=== PATIENT | female | born 1955 | race Caucasian/White ===

== ENCOUNTER 2017-10-06 21:53 | Inpatient (IN) ==
[2017-10-06] MEDS ORDERED: Sodium Chlor 0.9% Inj 500 ML IV.SIG ONE (22:39)
[2017-10-06 22:53] LABS: Baso % (Auto) 0.6 % (0.0-2.0); Eos # (Auto) 0.1 th/mm3 (0.0-0.4); Eos % (Auto) 1.6 % (0.0-4.0); Hematocrit 39.3 % (35.0-46.0); Hemoglobin 13.2 gm/dL (11.6-15.3); Lymph % (Auto) 27.8 % (9.0-44.0); Mean Corpuscular HGB Conc 33.7 % (32.0-36.0); Mean Corpuscular Hemoglobin 30.6 pg (27.0-34.0); Mean Platelet Volume 9.4 fL (7.0-11.0); Mono # (Auto) 0.4 th/mm3 (0.0-0.9); Mono % (Auto) 5.4 % (0.0-8.0); Neut # (Auto) 4.7 th/mm3 (1.8-7.7); Neut % (Auto) 64.6 % (16.0-70.0); Platelet Count 139 th/mm3 (150-450); Red Blood Count 4.32 mil/mm3 (4.00-5.30); Red Cell Distribution Width 13.7 % (11.6-17.2); White Blood Count 7.3 th/mm3 (4.0-11.0)
[2017-10-06 23:03] LABS: Activated Partial Thrombo Time 22.5 sec (24.3-30.1); Prothrombin Time 10.5 sec (9.8-11.6)
--- NOTE | 2017-10-06 23:06 | XR ---
EXAM DATE: 10/06/2017 10:56 PM EDT AGE/SEX: 62 years / Female INDICATIONS: Evaluate chest for trauma, fell CLINICAL DATA: This is the patient's initial encounter. Patient reports that signs and symptoms have been present for 1 day and indicates a pain score of 0/10. MEDICAL/SURGICAL HISTORY: None. None. COMPARISON: No prior exams available for comparison. FINDINGS: A single AP view of the chest demonstrates the lungs to be symmetrically aerated without evidence of mass, infiltrate or effusion. The cardiomediastinal contours are unremarkable. Osseous structures d emonstrate a comminuted fracture of the right proximal humeral shaft. CONCLUSION: Right humerus fracture. Clear lungs. Electronically signed by: Alexander Khanna MD 10/06/2017 11:05 PM EDT
[2017-10-06 23:07] LABS: Calcium 8.6 mg/dL (8.5-10.1); Carbon Dioxide 23.1 meq/L (21.0-32.0); Magnesium 1.9 mg/dL (1.5-2.5); Potassium 3.6 meq/L (3.5-5.1)
--- NOTE | 2017-10-06 23:07 | XR ---
EXAM DATE: 10/06/2017 10:58 PM EDT AGE/SEX: 62 years / Female INDICATIONS: Right humerus pain, fell CLINICAL DATA: This is the patient's initial encounter. Patient reports that signs and symptoms have been present for 1 day and indicates a pain score of 10/10. MEDICAL/SURGICAL HISTORY: None. None. COMPARISON: No prior exams available for comparison. FINDINGS: There is an oblique comminuted medially displaced fracture of the proximal to mid shaft of the right humerus. The bone density is normal. CONCLUSION: Right humerus fracture. Electronically signed by: Alexander Khanna MD 10/06/2017 11:05 PM EDT
--- NOTE | 2017-10-06 23:07 | ED ---
HPI General Chief complaint: Extremity Injury, Upper Stated complaint: R arm injury Time Seen by Provider: 10/06/17 22:13 Source: patient Mode of arrival: EMS Limitations: no limitations History of Present Illness HPI narrative: The patient is a 62 year old female who presents to the [facility] emergency department with a history of getting out of bed prior to arrival and accidentally tripping on her dog. She reports that she fell onto her right arm and heard a crunching sound. She reports that she was having difficulty getting up off of the floor and had severe pain in the right upper arm. The patient was noted to have some deformity by ambulance services. The patient denies hitting her head or losing consciousness. She denies having any to her extremities or weakness of her extremities. She denies having any chest pain, chest pressure, or shortness of breath. She denies having any abdominal pain. Otherwise on review of systems, she denies recent fevers, cough, congestion, vomiting, diarrhea, urinary symptoms, or other neurologic symptoms. Related Data Home Medications Medication Instructions Recorded Confirmed sertraline [Zoloft] 150 mg PO DAILY 10/06/17 10/07/17 Previous Rx's Medication Instructions Recorded hydrocodone-acetaminophen 1 tab PO Q4H PRN #42 tab 10/07/17 Allergies Allergy/AdvReac Type Severity Reaction Status Date / Time No Known Allergies Allergy Uncoded 10/06/14 14:06 Review of Systems ROS Unobtainable All other systems reviewed negative except as stated in HPI PMFSH Social History Social History Substance History: No History of Abuse Second Hand Smoke Exposure: No Smoking Status: Never smoker Tobacco Type: Cigarettes How Often Do You Have a Drink Containing Alcohol: 4 or more times a week Recent Travel in [facility] within the Last 8 Weeks: No Immunization History Tetanus Immunization: >5 Years Hx Influenza Vaccine This Season: No Exam Const General: cooperative, no acute distress and well developed Nutritional Appearance: well nourished Orientation: alert, awake and oriented x3 HENMT Head: normocephalic and atraumatic Nose: no nasal discharge and no epistaxis Mouth: moist mucous membranes Throat: posterior oropharynx normal and uvula midline Eyes Sclera: normal sclerae Pupils: PERRL Neck Neck: no meningeal signs, trachea midline and no JVD Resp Effort & Inspection: no use of accessory muscles Auscultation: clear to auscultation bilaterally Cardio Rate: regular rate Rhythm: regular rhythm Heart Sounds: no murmurs GI Inspection: non-distended Palpation: soft, no hepatosplenomegaly and nontender Auscultation: normal bowel sounds Back/Spine/Pelvis Back: no CVA tenderness Cervical Spine: normal cervical lordosis and No cervical spinal tenderness Thoracic/Lumbar Spine: thoracic and lumbar spine normal to inspection, No thoracic spinal tenderness and No lumbar spinal tenderness Skin General: dry skin (warm) Neuro General: alert, awake and oriented x3 Cranial Nerves: other (No facial asymmetry) Speech: speech normal Motor: strength 5/5 throughout and no movement abnormalities noted Sensory Exam: no sensory deficits noted Extrem General: normal to inspection (No calf tenderness on palpation. 2+ pulses in all 4 extremities.), normal exam except as noted (With the right upper extremity in a sling, decreased range of motion of the right numerous. She reports having mid to proximal humerus pain on palpation. There is some swelling noted. No crepitus noted. Patient has full range of motion of her elbow, wrist, fingers. The patient has intact sensation over all fingertips. The patient has soft compartments. The patient has less than 3 second capillary refill.), no clubbing, no cyanosis and no edema Psych Mood: congruent mood Affect: normal affect Judgment: judgment good Course Consultations Consultation #1: The patient's case including history, pertinent physical examination findings, and laboratory studies were discussed with Dr. Olivia. It was agreed that the patient would be admitted to the hospitalist service. Time: 23:35 Consultation #2: The patient's case including history, pertinent physical examination findings, and laboratory studies were discussed with Dr. Hamm. It was agreed that the patient would be admitted to the hospitalist service. Initial Documented Vital Signs Temperature 98.7 F 10/06/17 22:03 Pulse Rate 68 10/06/17 22:03 Respiratory Rate 17 10/06/17 22:03 Blood Pressure 108/65 10/06/17 22:03 Pulse Oximetry 95 10/06/17 22:03 Last Documented Vital Signs Temperature 98 F 10/07/17 12:00 Pulse Rate 74 10/07/17 12:00 Respiratory Rate 18 10/07/17 12:24 Blood Pressure 153/72 H 10/07/17 12:00 Pulse Oximetry 94 L 10/07/17 12:00 Medical Decision Making [facility] Narrative Medical decision making narrative: During the course of the patient's emergency department visit, the patient's history, examination, and differential diagnosis were reviewed with the patient. The patient was placed on a clinical auditor with oximetry and frequent blood pressure monitoring. The patient had IV access obtained and blood work sent for analysis. Diagnostic workup was started regarding this patient's fall with severe right upper extremity pain. The patient was initially provided morphine for pain relief, normal saline IV fluids The patient's laboratory studies were remarkable for a white blood cell count was noted to be 7.3, platelets 139 with a normal differential, hemoglobin 13, PT 10.5, PTT 22.5., Alcohol level is 132. Chemistry shows a GFR of 73. Imaging studies revealed a oblique comminuted medially displaced fracture of the proximal to mid shaft of the right humerus. The patient's chest x-ray showed no acute abnormality other than the humerus findings. A call was placed out to the orthopedic physician insurance sales professional. The patient's imaging findings were discussed with him. He was agreeable with the plan for the patient to be admitted and he will see the patient in consultation. He recommended that the patient be placed in a coaptation splint. The patient's results were discussed with the patient, including the plan of care. I explained that further testing and/ or monitoring is indicated based on the patient's history, examination, and/ or laboratory findings. Therefore, I recommended admission for additional evaluation. The patient expressed understanding and was agreeable with this plan. The patient was admitted to the hospital in stable condition and sent to a bed under the care of the [facility] service. Differential Diagnosis Differential Diagnosis: Shoulder dislocation, versus humerus fracture, versus clavicle fracture, versus contusion Medical Records Medical records reviewed: Yes I reviewed the patient's medical records. Lab Data Lab results reviewed: Yes I reviewed the patient's lab results. Result diagrams: 10/06/17 22:45 10/06/17 22:45 Lab Results 10/06/17 10/06/17 10/06/17 Range/Units 22:45 22:45 22:45 WBC 7.3 (4.0-11.0) th/mm3 RBC 4.32 (4.00-5.30) mil/mm3 Hgb 13.2 (11.6-15.3) gm/dL Hct 39.3 (35.0-46.0) % MCV 91.0 (80.0-100.0) fL MCH 30.6 (27.0-34.0) pg MCHC 33.7 (32.0-36.0) % RDW 13.7 (11.6-17.2) % Plt Count 139 L (150-450) th/mm3 MPV 9.4 (7.0-11.0) fL Neut % (Auto) 64.6 (16.0-70.0) % Lymph % (Auto) 27.8 (9.0-44.0) % Throckmorton % (Auto) 5.4 (0.0-8.0) % Eos % (Auto) 1.6 (0.0-4.0) % Baso % (Auto) 0.6 (0.0-2.0) % Neut # (Auto) 4.7 (1.8-7.7) th/mm3 Lymph # (Auto) 2.0 (1.0-4.8) th/mm3 Throckmorton # (Auto) 0.4 (0.0-0.9) th/mm3 Eos # (Auto) 0.1 (0.0-0.4) th/mm3 Baso # (Auto) 0.0 (0.0-0.2) th/mm3 WBC Differential . Differential Comment Auto diff final PT 10.5 (9.8-11.6) sec INR 1.0 Ratio APTT 22.5 L (24.3-30.1) sec Sodium 141 (136-145) meq/L Potassium 3.6 (3.5-5.1) meq/L Chloride 106 (98-107) meq/L Carbon Dioxide 23.1 (21.0-32.0) meq/L Anion Gap 12 (5-15) meq/L BUN 12 (7-18) mg/dL Creatinine 0.79 (0.50-1.00) mg/dL Estimated GFR 73 L (>89) mL/min Random Glucose 101 (74-106) mg/dL Calcium 8.6 (8.5-10.1) mg/dL Magnesium 1.9 (1.5-2.5) mg/dL Serum Alcohol 132 H (0-5) mg/dL Imaging Data Radiologist's impression: Chest X-Ray 10/06/17 22:38 CONCLUSION: Right humerus fracture. Clear lungs. Humerus X-Ray 10/06/17 22:38 CONCLUSION: Right humerus fracture. Discharge Plan Discharge Disposition Patient Disposition: 01 Discharge Home Discharge Condition Condition: Stable Discharge Order Discharge Orders: Discharge Order (Routine); Ordered 10/07/17 Ordered By: Jackelin Vazquez Orthopedic Clear for Discharge (Routine); Ordered 10/07/17 Ordered By: Ej Dumont Discharge Details Anticipated Discharge Date: 10/07/17 Discharge Comment: Patient to remain nonweightbearing right upper extremity and remain in sling and swath Physicians Team ED Provider: Georgette Amaya Primary Care Provider: MARY, Attending Provider: Nani Marie Other Providers: Henry Em ED Status: Left Department Discharge Information Discharge Date/Time: 10/07/17 04:20
[2017-10-06] MEDS ORDERED: Morphine Inj 4 MG/ML Vial IV.PUSH ONE (23:59)
[2017-10-07] MEDS ORDERED: Temazepam 15 MG Capsule PO PRN (00:43)
[2017-10-07] MEDS ORDERED: Acetaminophen 325 MG Tablet PO PRN (00:43)
[2017-10-07] MEDS ORDERED: Bisacodyl 10 MG Supp RECTAL PRN (00:43)
--- NOTE | 2017-10-07 01:29 | P.HPIM ---
History of Present Illness Primary Care Physician: UNKNOWN History of Present Illness: This is a 62-year-old female with a PMH of Depression who was brought to the ER by EMS for c/o right arm pain after a fall. States she was getting out of bed and tripped over her dog, landed on her right arm w/ immediate complaints of pain. No head trauma or LOC reported. Pain is constant, sharp, 10/10, worse w / movement. On arrival, BP 108/65, HR 68, O2 sat 95% on RA, Afebrile. CBC unremarkable except for platelets 139, no previous labs for comparison. INR 1.0. Chemistry essentially unremarkable except for GFR 73. Alcohol 132. CXR with right humerus fracture clear lungs. Humerus X-ray with comminuted medially displaced fracture of the proximal to mid shaft of the right humerus. Dr Olivia consulted, recommended consult to Dr. Brooks for surgical intervention. Pt currently without complaints. - Diagnosis (1) Fall (2) Right humeral fracture (3) Thrombocytopenia Inpatient Certification: I certify that the inpatient services were ordered in accordance with Medicare regulations governing the order. This includes certification that hospital inpatient services are reasonable and necessary and in the case of services not specified as inpatient-only under 42 CFR 419.22(n), that they are appropriately provided as inpatient services in accordance to with the 2-midnight benchmark under 43 CFR 412.3(e) Estimated Total Length of Stay (Days): 2 Plans for Post Hospital Care: Not yet determined Review of Systems PAST FAMILY HISTORY: Reviewed. No h/o DM or CAD All other systems reviewed negative except as stated in HPI PMFSH - History History Provided By: Patient, Resource Economist / EMT - Medical History Medical History: Medical History (Last Updated 10/06/17 @ 22:07 by Nestor Beth) Depression H/O: hysterectomy - Surgical History Surgical History: Surgical History (Last Updated 10/06/17 @ 23:05 by Georgette Amaya MD) H/O hand surgery History of - Tobacco History Smoking Status: Former smoker Tobacco Type: Cigarettes - Alcohol History How Often Do You Have a Drink Containing Alcohol: 4 or more times a week - Substance Use History Substance History: No History of Abuse - Travel History Recent Travel in the [facility] Within the Last 8 Weeks: No - Immunization History Tetanus Immunization: >5 Years Hx Influenza Vaccine This Season: No Medications and Allergies Active Medications: Active Medications Acetaminophen (Tylenol) 650 mg PO Q4H PRN PRN Reason: Temp > 100.4 Hydrocodone Bitart/Acetaminophen ([place] 5/325) 1 tab PO Q4H PRN PRN Reason: PAIN 3-5 Al Hydroxide/Mg Hydroxide (Milk Of Magnesia Liq) 30 ml PO Q12H PRN PRN Reason: Mild Constipation Bisacodyl (Dulcolax Supp) 10 mg RECTAL DAILY PRN PRN Reason: SEVERE CONSITIPATION Sodium Chloride (Ns Inj) 1,000 mls @ 100 mls/hr IV.CONT .Q10H MARRY Lactulose (Lactulose Liq) 30 ml PO DAILY PRN PRN Reason: SEVERE CONSITIPATION Morphine Sulfate (Morphine Inj) 2 mg IV.PUSH Q4H PRN PRN Reason: PAIN 6-10 Ondansetron HCl (Zofran Inj) 4 mg IV.PUSH Q6H PRN PRN Reason: NAUSEA OR VOMITING Senna/Docusate Sodium (Sarah-Colace) 1 tab PO BID MARRY Sennosides (Senokot) 17.2 mg PO Q12H PRN PRN Reason: Moderate Constipation Sertraline HCl (Zoloft) 50 mg PO TID MARRY Sodium Chloride (Ns Flush) 2 ml IV.FLUSH UNSCH PRN PRN Reason: FLUSH AFTER USING IV ACCESS Temazepam (Restoril) 15 mg PO HS PRN PRN Reason: INSOMNIA Allergies Allergy/AdvReac Type Severity Reaction Status Date / Time No Known Allergies Allergy Uncoded 10/06/14 14:06 Home Medications Medication Instructions Recorded Confirmed Type sertraline [Zoloft] 50 mg PO TID 10/06/17 10/06/17 History Exam Vital signs: Vital Signs 10/06/17 22:03 Temperature 98.7 F Pulse Rate 68 Respiratory Rate 17 Blood Pressure 108/65 Pulse Oximetry 95 Intake & Output 10/06/17 10/06/17 10/07/17 06:59 18:59 06:59 Weight 122.47 kg Narrative: PE: GENERAL: Middle-aged white female in no acute distress. HEENT: PERRLA, EOMI. No scleral icterus or conjunctival pallor. No lid lag or facial droop. CARDIOVASCULAR: Regular rate and rhythm. No obvious murmurs to auscultation. No chest tenderness to palpation. RESPIRATORY: No obvious rhonchi or wheezing. Clear to auscultation. Breath sounds equal bilaterally. GASTROINTESTINAL: Abdomen soft, non-tender, nondistended. BS normal. MUSCULOSKELETAL: Extremities without clubbing, cyanosis, or edema. No obvious deformities. RUE splint in place. NEUROLOGICAL: Awake, alert and oriented x4. No focal neurologic deficits. Moving both upper and lower extremities spontaneously. Results - Labs CBC & Chem 7: 10/06/17 22:45 10/06/17 22:45 Labs: Short CBC 10/06/17 Range/Units 22:45 WBC 7.3 (4.0-11.0) th/mm3 Hgb 13.2 (11.6-15.3) gm/dL Hct 39.3 (35.0-46.0) % Plt Count 139 L (150-450) th/mm3 BMP 10/06/17 22:45 Sodium 141 Potassium 3.6 Chloride 106 Carbon Dioxide 23.1 BUN 12 Creatinine 0.79 Calcium 8.6 - Imaging Impressions Chest X-Ray 10/06/17 22:38 CONCLUSION: Right humerus fracture. Clear lungs. Humerus X-Ray 10/06/17 22:38 CONCLUSION: Right humerus fracture. Caprini VTE Risk Assessment Caprini VTE Risk Assessment: No/Low Risk (score <= 1) Caprini Risk Assessment Model: Point Value = 1 Point Value = 2 Point Value = 3 Point Value = 5 Age 41-60 Minor surgery BMI > 25 kg/m2 Swollen legs Varicose veins or History of unexplained or recurrent spontaneous Oral contraceptives or hormone replacement Sepsis (< 1 month) Serious lung disease, including pneumonia (< 1 month) Abnormal pulmonary function Acute myocardial infarction Congestive heart failure (< 1 month) History of inflammatory bowel disease Medical patient at bed rest Age 61-74 Arthroscopic surgery Major open surgery (> 45 min) Laparoscopic surgery (> 45 min) Malignancy Confined to bed (> 72 hours) Immobilizing plaster cast Central venous access Age >= 75 History of VTE Family history of VTE Factor V Leiden Prothrombin [id number] Lupus anticoagulant Anticardiolipin antibodies Elevated serum homocysteine Heparin-induced thrombocytopenia Other congenital or acquired thrombophilia Stroke (< 1 month) Elective arthroplasty Hip, pelvis, or leg fracture Acute spinal cord injury (< 1 month) Prophylaxis Regimen: Total Risk Factor Score Risk Level Prophylaxis Regimen 0-1 Low Early ambulation 2 Moderate Order ONE of the following: *Sequential Compression Device (SCD) *Heparin 5000 units SQ BID 3-4 Higher Order ONE of the following medications: *Heparin 5000 units SQ TID *Enoxaparin/Lovenox 40 mg SQ daily (WT < 150 kg, CrCl > 30 mL/min) *Enoxaparin/Lovenox 30 mg SQ daily (WT < 150 kg, CrCl > 10-29 mL/min) *Enoxaparin/Lovenox 30 mg SQ BID (WT < 150 kg, CrCl > 30 mL/min) AND/OR *Sequential Compression Device (SCD) 5 or more Highest Order ONE of the following medications: *Heparin 5000 units SQ TID (Preferred with Epidurals) *Enoxaparin/Lovenox 40 mg SQ daily (WT < 150 kg, CrCl > 30 mL/min) *Enoxaparin/Lovenox 30 mg SQ daily (WT < 150 kg, CrCl > 10-29 mL/min) *Enoxaparin/Lovenox 30 mg SQ BID (WT < 150 kg, CrCl > 30 mL/min) AND *Sequential Compression Device (SCD) Assessment and Plan - Assessment (1) Fall Code(s): W19.XXXA - Unspecified fall, initial encounter Status: Acute (2) Right humeral fracture Code(s): S42.301A - Unspecified fracture of shaft of humerus, right arm, initial encounter for closed fracture Status: Acute (3) Thrombocytopenia Code(s): D69.6 - Thrombocytopenia, unspecified Status: Acute - Plan A/P: 1. Fall: s/p mechanical trip and fall, no head trauma or LOC reported. No other injuries noted. 2. Right Humerus Fx: secondary to above, Humerus X-ray w/ comminuted medially displaced right humerus fx, images reviewed by me. Dr. Olivia consulted, recommended consult for Dr. Brooks in am, s/p splint. NPO, IVF, analgesics/ antiemetics. 3. Thrombocytopenia: Platelets 139, no previous labs for comparison, no active bleeding, will monitor, repeat labs in am. 4. DVT Prophylaxis: Anticoagulation postop per Ortho 5. Social work for d/c planning as needed. 6. Case discussed w/ ER physician at length, labs/records/imaging reviewed by me.
[2017-10-07] MEDS ORDERED: Chlorhexidine Gluconate 2% 1 Pack (2 Cloths) TOPICAL SCH (02:15)
[2017-10-07] MEDS ORDERED: Metoprolol Tartrate 25 MG Tablet PO SCH (02:15)
[2017-10-07] MEDS: Sod Chloride 0.9% Inj 1,000 ML IV.CONT SCH ×2 (02:22→13:46)
[2017-10-07] MEDS: Morphine Inj 4 MG/ML Vial IV.PUSH PRN ×2 (02:23→06:28)
[2017-10-07] MEDS ORDERED: Sodium Chlor 0.9% Inj 500 ML IV.SIG SCH (03:00)
[2017-10-07] MEDS ORDERED: LORazepam 1 MG Tablet PO PRN (07:35)
[2017-10-07] MEDS ORDERED: Haloperidol Inj 5 MG/ML Ampul IV.PUSH PRN (07:35)
[2017-10-07] MEDS: Sertraline 50 MG Tablet PO SCH ×2 (08:08→13:40)
[2017-10-07] MEDS ORDERED: Thiamine Inj 100 MG in Sodium Chlor 0.9% Inj 100 ML IV.SIG ONE (08:15)
--- NOTE | 2017-10-07 08:51 | MB ---
cc: Henry Brooks MD DATE: 10/07/2017 REASON FOR CONSULTATION: Right humerus fracture. HISTORY OF PRESENT ILLNESS: Chuyita is a 62-year-old female. She was getting out of bed. She tripped over her dog. She was trying to avoid landing on the dog. She landed on her right arm and shoulder. She had immediate right shoulder pain. She presented to the emergency room where she was found to have mildly displaced right humeral shaft fractures. Her fracture extended up to the proximal humerus. She is currently awake and alert on the orthopedic floor. Her only complaint is her right arm. She denies dizziness, syncope or loss of consciousness. PAST MEDICAL HISTORY: Illnesses, depression. PAST SURGICAL HISTORY: Hysterectomy and hand surgery. ALLERGIES: NO KNOWN DRUG ALLERGIES. MEDICATIONS: Include Zoloft. SOCIAL HISTORY: The patient denies tobacco or drug use. She does drink alcohol several times a week. She is a former smoker. FAMILY HISTORY: Noncontributory. REVIEW OF SYSTEMS: The patient denies fevers, chills, weight loss, headache, visual changes, hearing loss, chest pain, palpitations, shortness of breath, nausea, vomiting, urinary changes, diarrhea, bowel changes, neck pain, back pain, skin rashes, weakness, numbness of extremities, or anxiety. She has a history of depression. She complains of right shoulder pain. The pain is worse with movement. LABORATORY DATA: The patient has a white blood cell count of 7.3, hematocrit 39.3, platelet count of 139. INR is 1.0. Potassium is 3.6. IMAGING: X-rays of her humerus were reviewed. X-rays reveal a mildly displaced right humeral shaft fracture. The fracture extends up to the humeral neck. The glenohumeral joint is reduced. PHYSICAL EXAM: GENERAL: The patient is a pleasant 62-year-old female. She is awake and alert she is alert and oriented x 3. She is in no acute distress. She is mildly overweight. VITAL SIGNS: Temperature 98.3, pulse 86, respirations 18, blood pressure 133/67, O2 saturation 93% on room air. HEAD: The patient is normocephalic. EYES: Pupils are equal. NECK: Soft, nontender. The trachea is midline. ABDOMEN: Soft, nontender, nondistended. EXTREMITIES: Examination of right arm reveals swelling and bruising around her arm. She has pain with any shoulder motion. Arm and forearm compartments are soft. She has intact sensation in all fingers. She has good cap refill in all fingers. Skin is intact. Radial pulses palpable. Examination of the left arm reveals no pain with shoulder, elbow or wrist motion. Skin is intact. Radial pulses palpable. Sensation is intact in all fingers. Examination of bilateral lower extremities reveals no pain with hip, knee or ankle motion. Skin is intact to both feet. Dorsalis pedis pulses are palpable. Sensation is intact to both feet. IMPRESSIONS: 1. History of depression. 2. Mildly displaced right humeral shaft fracture with extension up to the humeral neck. PLAN: The treatment options were discussed with the patient. At this point, I discussed both surgical and nonsurgical options. I discussed the risks and benefits of both. The patient states that she is reluctant to have surgery and would like to avoid surgery if possible. I stated that would be a reasonable option to go with conservative treatment. The patient will remain in a Co-op splint. I explained to her that there is an increased risk of developing a nonunion with nonoperative treatment compared to surgery. The patient understands this. I will have her followup in the office in 1 week. If fracture displaces further, we will again discuss surgery. The risks of surgery were discussed including bleeding, infection, injury to arteries, nerves or blood vessels, weakness or numbness of the hand, painful hardware, as well as complications of anesthesia. The patient will be started on calcium and vitamin D supplementation. A mid-level provider in my office, nurse practitioner or PA, may see this patient on a follow-up basis and continue to implement the objective of this plan including: Starting or adjusting medications, injections of muscle, tendon, bursa or joints, cast application, orthotic or brace application, physical therapy, further radiographic studies including x-ray, MRI, CT, ultrasounds or bone scan, vascular studies, neurologic studies, or other specialist consultations, and proceeding with surgical management as appropriate. MD ARPIT Henry/LUCY , 08:29 AM , 08:38 AM
[2017-10-07] MEDS ORDERED: Senna/Docusate Sodium 8.6/50 MG Tablet PO SCH (09:00)
[2017-10-07] MEDS ORDERED: Folic Acid 1 MG Tablet PO SCH (09:00)
--- NOTE | 2017-10-07 09:02 | P.PNOP ---
Subjective Interval history: Trip and fall yesterday over dog at home. Right proximal humerus and humeral shaft fractures. No other associated injuries Physical Exam Vital signs: Vital Signs 10/06/17 22:03 10/07/17 02:25 10/07/17 03:00 Temperature 98.7 F 98.3 F Pulse Rate 68 81 86 Respiratory Rate 17 15 18 Blood Pressure 108/65 117/59 L 133/67 Pulse Oximetry 95 95 93 L Intake & Output 10/06/17 10/07/17 10/07/17 18:59 06:59 18:59 Weight 122.47 kg Other: Date of Last Bowel Movement 10/06/17 10/06/17 Weight On Admission 122.47 kg Narrative: Left upper extremity: Full range of motion and neurovascularly intact Bilateral lower extremity: Full range of motion neurovascularly intact Right upper extremity: Pain over humerus. Coaptation splint in place with sling and swath. Intact sensation of her radial ulnar median nerve refills. Full extension flexion of all fingers Results - Labs CBC & Chem 7: 10/06/17 22:45 10/06/17 22:45 Laboratory Results - last 24 hr 10/06/17 10/06/17 10/06/17 22:45 22:45 22:45 WBC 7.3 RBC 4.32 Hgb 13.2 Hct 39.3 MCV 91.0 MCH 30.6 MCHC 33.7 RDW 13.7 Plt Count 139 L MPV 9.4 Neut % (Auto) 64.6 Lymph % (Auto) 27.8 [place] % (Auto) 5.4 Eos % (Auto) 1.6 Baso % (Auto) 0.6 Neut # (Auto) 4.7 Lymph # (Auto) 2.0 [place] # (Auto) 0.4 Eos # (Auto) 0.1 Baso # (Auto) 0.0 WBC Differential . Differential Comment Auto diff final PT 10.5 INR 1.0 APTT 22.5 L Sodium 141 Potassium 3.6 Chloride 106 Carbon Dioxide 23.1 Anion Gap 12 BUN 12 Creatinine 0.79 Estimated GFR 73 L Random Glucose 101 Calcium 8.6 Magnesium 1.9 Serum Alcohol 132 H - Imaging Impressions Chest X-Ray 10/06/17 22:38 CONCLUSION: Right humerus fracture. Clear lungs. Humerus X-Ray 10/06/17 22:38 CONCLUSION: Right humerus fracture. Assessment and Plan - Assessment and Plan Right proximal humerus and humeral shaft fractures Both surgical and conservative measures are discussed. At this point it is reasonable to consider conservative measures. Patient would prefer to avoid surgery if possible. At this point she will continue to remain in coaptation splint. She will be nonweightbearing and remain in sling and swath as well. We will have her follow-up in office in 1 week for follow-up x-rays and examination in splint. At that point we will either maintain the splint or convert to a humeral brace. She understands that if the fracture displaces more it may necessitate surgical intervention. Resume diet May be discharged home once pain is controlled and is cleared by physical therapy Follow-up with Dr. Brooks or DESMOND in 1 week
--- NOTE | 2017-10-07 10:53 | P.DS ---
<Jackelin Vazquez - Last Filed: 10/07/17 13:46> Date of admission: 10/07/17 00:40 Primary care physician: UNKNOWN Attending physician on discharge: Nani Marie Anticipated date of discharge: 10/07/17 Brief History from admission: This is a 62-year-old female with a PMH of Depression who was brought to the ER by EMS for c/o right arm pain after a fall. States she was getting out of bed and tripped over her dog, landed on her right arm w/ immediate complaints of pain. No head trauma or LOC reported. Pain is constant, sharp, 10/10, worse w / movement. On arrival, BP 108/65, HR 68, O2 sat 95% on RA, Afebrile. CBC unremarkable except for platelets 139, no previous labs for comparison. INR 1.0. Chemistry essentially unremarkable except for GFR 73. Alcohol 132. CXR with right humerus fracture clear lungs. Humerus X-ray with comminuted medially displaced fracture of the proximal to mid shaft of the right humerus. Dr Olivia consulted, recommended consult to Dr. Brooks for surgical intervention. Pt currently without complaints. DS: Diagnosis - Discharge Diagnosis (1) Fall Status: Acute (2) Right humeral fracture Status: Acute (3) Thrombocytopenia Status: Acute DS: Medications - Discharge Medications Prescriptions: hydrocodone-acetaminophen 1 tab PO Q4H PRN #42 tab PRN Reason: Acute Pain DS: Summary Hospital Course: Patient admitted s/p mechanical trip and fall at home resulting in right humerus fracture. Patient with alcohol level of 132. She was placed on CIWA protocol and thiamine, multivitamin and folic acid. Patient was seen in consultation by Orthopedic service who discussed surgical and conservative measures. Patient declined surgical intervention preferring conservative management. Patient to remain in coaptation splint. She will be nonweightbearing and remain in sling and swath as well. Patient cleared for discharge from Orthopedic standpoint and patient was instructed to follow up with them in one week. - Time Spent with Patient Total time spent providing and/or coordinating discharge services: Greater than 30 minutes - Quality: VTE Deep Vein Thrombosis/Pulmonary Embolism Present on Admission: No Exam Vital signs: Vital Signs 10/06/17 22:03 10/07/17 02:25 10/07/17 03:00 Temperature 98.7 F 98.3 F Pulse Rate 68 81 86 Respiratory Rate 17 15 18 Blood Pressure 108/65 117/59 L 133/67 Pulse Oximetry 95 95 93 L 10/07/17 08:00 10/07/17 08:38 Temperature 97.3 F L Pulse Rate 79 Respiratory Rate 19 18 Blood Pressure 161/86 H Pulse Oximetry 94 L Intake & Output 10/06/17 10/07/17 10/07/17 18:59 06:59 18:59 Weight 122.47 kg Other: Date of Last Bowel Movement 10/06/17 10/06/17 Weight On Admission 122.47 kg Narrative: GENERAL: Well developed, well nourished, obese middle aged patient, INAD. Awake and alert. SKIN: Warm and dry. No generalized rash. HEAD: Atraumatic. Normocephalic. EYES: Pupils equal and round. No scleral icterus. No injection or drainage. ENT: No nasal bleeding or discharge. Mucous membranes pink and moist. NECK: Trachea midline. No JVD. CARDIOVASCULAR: Regular rate and rhythm. No obvious murmurs. RESPIRATORY: No accessory muscle use. Nonlabored. Clear to auscultation anteriorly. Breath sounds equal bilaterally. GASTROINTESTINAL: Abdomen soft, non-tender, nondistended. +BS. MUSCULOSKELETAL: Extremities without clubbing, cyanosis, or edema. RUE in splint and sling. NV intact distal RUE. NEUROLOGICAL: Awake and alert. No obvious cranial nerve deficits. Motor grossly within normal limits. No focal neurologic findings appreciate. Normal speech. PSYCHIATRIC: Appropriate mood and affect; insight and judgment normal. Results Procedures completed during hospitalization: None Labs on day of discharge: Labs from last 24 hours 10/06/17 10/06/17 10/06/17 22:45 22:45 22:45 WBC 7.3 RBC 4.32 Hgb 13.2 Hct 39.3 MCV 91.0 MCH 30.6 MCHC 33.7 RDW 13.7 Plt Count 139 L MPV 9.4 Neut % (Auto) 64.6 Lymph % (Auto) 27.8 [place] % (Auto) 5.4 Eos % (Auto) 1.6 Baso % (Auto) 0.6 Neut # (Auto) 4.7 Lymph # (Auto) 2.0 [place] # (Auto) 0.4 Eos # (Auto) 0.1 Baso # (Auto) 0.0 WBC Differential . Differential Comment Auto diff final PT 10.5 INR 1.0 APTT 22.5 L Sodium 141 Potassium 3.6 Chloride 106 Carbon Dioxide 23.1 Anion Gap 12 BUN 12 Creatinine 0.79 Estimated GFR 73 L Random Glucose 101 Calcium 8.6 Magnesium 1.9 Serum Alcohol 132 H - Impressions ITS Impressions Chest X-Ray 10/06/17 22:38 CONCLUSION: Right humerus fracture. Clear lungs. Humerus X-Ray 10/06/17 22:38 CONCLUSION: Right humerus fracture. <Nani Marie - Last Filed: 10/08/17 18:32> Date of admission: 10/07/17 00:40 Primary care physician: UNKNOWN DS: Summary - Time Spent with Patient Total time spent providing and/or coordinating discharge services: Exam Vital signs: Intake & Output 10/07/17 10/08/17 10/08/17 18:59 06:59 18:59 Other: Date of Last Bowel Movement 10/07/17 # Bowel Movements 1 Results - Impressions ITS Impressions Chest X-Ray 10/06/17 22:38 CONCLUSION: Right humerus fracture. Clear lungs. Humerus X-Ray 10/06/17 22:38 CONCLUSION: Right humerus fracture. Discharge Plan - Discharge Order Discharge Orders: Discharge Order (Routine); Ordered 10/07/17 Ordered By: Jackelin Vazquez Orthopedic Clear for Discharge (Routine); Ordered 10/07/17 Ordered By: Ej Dumont - Discharge Details Anticipated Discharge Date: 10/07/17 Discharge Comment: Patient to remain nonweightbearing right upper extremity and remain in sling and swath - Physicians Team Primary Care Provider: UNKNOWN, Attending Provider: Nani Marie Other Providers: Henry Brooks MD
== END 2017-10-07 17:12 | disposition home or self-care (01) ==
LOC: NEPC 21:53 → NEDA 10-07 00:40 → N06 10-07 03:11
PROVIDERS: ADMIT Hospitalist; ATTEND Hospitalist